=== PATIENT | female | born 1980 | race Caucasian/White ===

== ENCOUNTER 2017-07-06 11:59 | Emergency (ER) | payer OTHER ==
[2017-07-06 15:16] VITALS: BP 113/68
--- NOTE | 2017-07-06 15:19 | UC ---
Ear Complaint HPI - HPI Summary HPI Summary: 36 YEAR OLD FEMALE PRESENTS WITH COMPLAINS OF LEFT EAR PAIN, CHEST CONGESTION AND COUGH. - History of Current Complaint Chief Complaint: UCRespiratory Stated Complaint: LEFT EAR PAIN COUGH CONGESTION Time Seen by Provider: 07/06/17 15:17 Hx Obtained From: Patient Hx Last Menstrual Period: begininning of june Onset/Duration: Sudden Onset, Lasting Days Severity Initially: Moderate Severity Currently: Moderate - Allergies/Home Medications Allergies/Adverse Reactions: Allergies Allergy/AdvReac Type Severity Reaction Status Date / Time Amoxicillin [From Augmentin] Allergy Severe Hives Verified 07/06/17 15:11 Clavulanic Acid Allergy Severe Hives Verified 07/06/17 15:11 [From Augmentin] bactoban Allergy Severe Hives Uncoded 07/06/17 15:11 Home Medications: Home Medications Etonogestrel [Nexplanon] 68 mg IMPLANT ONCE 07/06/17 [History Confirmed 07/06/17 ] guaiFENesin ER TAB [Mucinex*] 600 mg PO BID PRN 07/06/17 [History Confirmed ] PMH/Surg Hx/FS Hx/Imm Hx Previously Healthy: Yes - Surgical History Surgical History: None - Social History Alcohol Use: Occasionally Substance Use Type: None Smoking Status (MU): Heavy Every Day Tobacco Smoker Amount Used/How Often: 1/2 pack day - Immunization History Most Recent Influenza Vaccination: not this season Most Recent Tetanus Shot: 2005 Review of Systems Constitutional: Negative Skin: Negative Eyes: Negative ENT: Sore Throat, Ear Ache, Nasal Discharge, Sinus Congestion, Sinus Pain/ Tenderness Respiratory: Cough Cardiovascular: Negative Gastrointestinal: Negative Genitourinary: Negative Motor: Negative Neurovascular: Negative Musculoskeletal: Negative Neurological: Negative Psychological: Negative All Other Systems Reviewed And Are Negative: Yes Physical Exam Triage Information Reviewed: Yes Vital Signs: Initial Vital Signs Temp 37.4 C 07/06/17 15:12 Pulse 93 07/06/17 15:12 Resp 16 07/06/17 15:12 BP 113/68 07/06/17 15:12 Pulse Ox 100 07/06/17 15:12 Vital Signs Reviewed: Yes Eye Exam: Normal ENT: Positive: Pharyngeal erythema, Nasal congestion, Nasal drainage, Tonsillar swelling Dental Exam: Normal Neck exam: Normal Neck: Positive: 1 Respiratory Exam: Normal Respiratory: Positive: Wheezing Cardiovascular Exam: Normal Abdominal Exam: Normal Musculoskeletal Exam: Normal Neurological Exam: Normal Psychological Exam: Normal Skin Exam: Normal Ear Complaint Course/Dx - Differential Dx/Diagnosis Provider Diagnoses: COUGH. CHEST CONGESTION. LEFT EAR OTITIS EXTERNA Discharge - Discharge Plan Condition: Stable Disposition: HOME Prescriptions: Albuterol HFA INHALER* [Ventolin HFA Inhaler*] 1 puff INH Q6H PRN #1 mdi PRN Reason: Wheezing Azithromyxin DADA (NF) [Z-Dada (Zithromax) 250 mg tabs #6] 2 tab PO .TODAY, THEN 1 DAILY #6 tab Guaifenesin-Codeine [Cheratussin AC] 1 teasp PO Q8H PRN #120 ml MDD 15 ml PRN Reason: Cough Methylprednisolone [Medrol Dosepak 4 MG*] 4 mg PO .SEE DADA INSTRUCTION #21 tab Neomyc/Polym/HC 1% OTIC SUSP* [Cortisporin Otic Susp 1%*] 4 drop LEFT EAR QID # 1 btl Patient Education Materials: Sinusitis (ED), Acute Bronchitis (ED) Referrals: Ruby Gutierrez MD [Medical Doctor] -
== END 2017-07-06 15:32 | disposition home or self-care (01) ==
LOC: UCCORT 11:59
DX: H60.92 Unspecified otitis externa, left ear (principal); R05 Cough; R09.89 Other specified symptoms and signs involving the circulatory and respiratory systems; Z88.1 Allergy status to other antibiotic agents; F17.210 Nicotine dependence, cigarettes, uncomplicated
CPT/HCPCS: 99212; G0463

== ENCOUNTER 2017-12-30 17:39 | Emergency (ER) | payer OTHER ==
[2017-12-30 19:33] VITALS: BP 111/62
--- NOTE | 2017-12-30 19:48 | UC ---
Throat Pain/Nasal William HPI - HPI Summary HPI Summary: ear congestion and sinus pressure progressive x 5 days. no fever, chills + fatigue + nasal congestion + PND no sore throat little relief with OTC meds. Pt with h/o sinus infections - reports feels similar Pt's medications reviewed this visit - History of Current Complaint Chief Complaint: UCGeneralIllness Stated Complaint: EAR (L), SINUSES Time Seen by Provider: 12/30/17 19:47 Hx Obtained From: Patient Hx Last Menstrual Period: 12/04/17 ?: No Onset/Duration: Gradual Onset, Lasting Days Pain Intensity: 5 Pain Scale Used: 0-10 Numeric Associated Signs & Symptoms: Positive: Sinus Discomfort, Nasal Discharge - Allergies/Home Medications Allergies/Adverse Reactions: Allergies Allergy/AdvReac Type Severity Reaction Status Date / Time amoxicillin [From Augmentin] Allergy Hives Verified 12/30/17 19:31 clavulanic acid Allergy Hives Verified 12/30/17 19:31 [From Augmentin] bactoban Allergy Severe Hives Uncoded 12/30/17 19:31 PMH/Surg Hx/FS Hx/Imm Hx Previously Healthy: Yes - Surgical History Surgical History: None - Family History Known Family History: Positive: None - Social History Occupation: Employed Full-time Lives: With Family Alcohol Use: Weekly Substance Use Type: None Smoking Status (MU): Heavy Every Day Tobacco Smoker Amount Used/How Often: 1/2 pack day - Immunization History Most Recent Influenza Vaccination: not this season Most Recent Tetanus Shot: 2005 Review of Systems Constitutional: Negative Skin: Negative ENT: Sore Throat, Nasal Discharge, Sinus Congestion, Sinus Pain/Tenderness All Other Systems Reviewed And Are Negative: Yes Physical Exam Triage Information Reviewed: Yes Appearance: Well-Appearing, No Pain Distress, Well-Nourished Vital Signs: Initial Vital Signs Temp 98.5 F 12/30/17 19:27 Pulse 99 12/30/17 19:27 Resp 18 12/30/17 19:27 BP 111/62 12/30/17 19:27 Pulse Ox 100 12/30/17 19:27 Vital Signs Reviewed: Yes Eye Exam: Normal Eyes: Positive: Conjunctiva Clear ENT Exam: Normal ENT: Positive: Hearing grossly normal, Nasal congestion, Sinus tenderness, Uvula midline, Other - fluid L>R ear, buldge left turbinates inflammed and boggy + PND Dental Exam: Normal Neck exam: Normal Neck: Positive: Supple, Nontender, No Lymphadenopathy Respiratory Exam: Normal Respiratory: Positive: Chest non-tender, Lungs clear, Normal breath sounds Cardiovascular Exam: Normal Cardiovascular: Positive: RRR, No Murmur Abdominal Exam: Normal Musculoskeletal Exam: Normal Neurological Exam: Normal Psychological Exam: Normal Skin Exam: Normal Throat Pain/Nasal Course/Dx - Course Course Of Treatment: pt with sinus congestion, pnd and fluid in right ear. abx. flonase. secretion precaution. return precaution - Differential Dx/Diagnosis Provider Diagnoses: rhinosinusitis. otitis media, left Discharge - Sign-Out/Discharge Documenting (check all that apply): Discharge/Admit/Transfer - Discharge Plan Condition: Stable Disposition: HOME Prescriptions: Azithromycin TAB* [Zithromax TAB (Z-DADA) 250 mg #6 tabs] 2 tab PO .TODAY, THEN 1 DAILY #1 dada Fluticasone NASAL SPRAY 50MCG* [Flonase NASAL SPRAY 50MCG*] 2 spray BOTH NARES DAILY #1 btl Patient Education Materials: Sinusitis (ED), Oral Herpes Simplex Virus Infections (ED) Referrals: Simona Jain MD [Primary Care Provider] - Additional Instructions: - Stay well hydrated. Drink plenty of non-alcoholic, non-caffinated beverages. - Alternate ibuprofen (Advil, Motrin) 600mg and Tylenol every 3 hours for pain or fever. Take with food. Do NOT take for more than 4-5 days. - These infections are spread by secretions - do NOT share eating or drinking utensils - clean items you share with other people such as cell phones, computer mouse, TV remote, computer tablets,etc. Once you have been antibiotics for 2 days, change your toothbrush and your pillowcase. - get plenty of restful sleep - humidify the air in the room where you sleep - boil water, run a hot steam shower, vaporizer, cups of water by heat register - okay to take over the counter decongestant and cough medication - use nasal spray as prescribed - contact your doctor or return with questions or concerns - Billing Disposition and Condition Condition: STABLE Disposition: HOME
== END 2017-12-30 20:17 | disposition home or self-care (01) ==
LOC: UCCORT 17:39
DX: H92.02 Otalgia, left ear (principal)
CPT/HCPCS: 99212; G0463